=== PATIENT | male | born 1990 | race Caucasian/White ===

== ENCOUNTER 2020-02-19 18:18 | Outpatient (REF) | payer SELFPAY | END 2020-02-19 18:19 | disposition home or self-care (01) | LOC: HO.LAB 18:18 | PROVIDERS: Visit Provider Internal Medicine | DX: Z20.828 Contact with and (suspected) exposure to other viral communicable diseases (principal) | CPT/HCPCS: C9803; U0003 ==

== ENCOUNTER 2021-01-04 13:54 | Emergency (ER) | payer OTHER, SELFPAY ==
--- NOTE | 2021-01-04 13:59 | ECG_ITS ---
Test Reason : SYNCOPE Blood Pressure : / mmHG Vent. Rate : 077 BPM Atrial Rate : 077 BPM P-R Int : 156 ms QRS Dur : 086 ms QT Int : 368 ms P-R-T Axes : 048 028 015 degrees QTc Int : 416 ms Normal sinus rhythm Normal ECG No previous ECGs available Referred By: [facility] Electronically Signed By:SORAYA INGRAM MD
[2021-01-04 14:00] VITALS: BP 141/86; PULSE 70; O2SAT 96
[2021-01-04 14:03] VITALS: BP 143/86; PULSE 56; RESP 10; O2SAT 92; O2SAT 93; BMI 40.8
[2021-01-04 14:11] LABS: Glucose, Whole Blood 150 mg/dL (60-115)
[2021-01-04] MEDS: 0.9 % Sodium Chloride 1,000 ML 999 ML IV (14:21)
--- NOTE | 2021-01-04 14:27 | PC.NURSE ---
Addendum entered by Elaina Lacy RN 01/04/21 15:20: Patient on continuous portable EKG monitoring along with bedside telemetry following episode of asystole/pause. Addendum entered by Elaina Lacy RN 01/04/21 15:15: When patient's HR paused, patient was not arousable, unresponsive, diaphoretic. Unable to palpate carotid pulse, pacer pads placed. Code cart remained at bedside. Pressure bagged NS bolus. VS monitored q5min. Dr Morris to bedside. 2nd IV inserted. Labs drawn. Covid swabbed. Original Note: pt me x 1 with atropine 0.5mg ivp per dr. morris. pt rhythm went into asystole/pause. sternal rub then pt HR up to 38. pt now more awake, answering staff, pulse 76. Will continue to monitor.
[2021-01-04 14:38] VITALS: BP 130/80; PULSE 87; RESP 21; TEMP 36.4; O2SAT 100
--- NOTE | 2021-01-04 14:49 | ED_ITS ---
HPI - Syncope General Chief Complaint: Syncope Stated Complaint: syncope Time Seen by Provider: 01/04/21 14:38 Source: patient Mode of arrival: ambulatory Limitations: no limitations History of Present Illness HPI narrative: A 31-year-old male with no pmh presents to ED for multiple episodes of syncope. As per EMS patient had 3 syncopal episodes at home and 2 more in the ambulance ride. Patient now alert oriented x3. Patient states this has never happened before. Patient states smoking marijuana this morning from his usual dealer. Patient denies any other drug use. Related Data Allergies Allergy/AdvReac Type Severity Reaction Status Date / Time No Known Allergies Allergy Unverified 12/06/19 16:46 Review of Systems Review of Systems: Yes all other systems are reviewed and are negative Constitutional: Constitutional: Reports as per HPI and Reports no additional constitutional complaints Eyes: Eyes: Reports as per HPI and Reports no additional eye complaints ENT: Reports system reviewed and no additional complaints, except as documented and Reports as per HPI Cardiovascular: Cardiovascular: Reports as per HPI and Reports no additional cardiovascular complaints Comments: Multiple episodes of syncope Respiratory: Respiratory: Reports as per HPI and Reports no additional respiratory complaints Gastrointestinal: Gastrointestinal: Reports as per HPI and Reports no additional gastrointestinal complaints Genitourinary: Genitourinary: Reports no additional male genitourinary complaints and Reports as per HPI Musculoskeletal: Musculoskeletal: Reports no additional musculoskeletal complaints and Reports as per HPI Integumentary/Breasts: Skin/Breast: Reports system reviewed and no additional complaints, except as docu and Reports as per HPI Neurologic: Reports system reviewed and no additional complaints, except as documented and Reports as per HPI Psychiatric: Psychiatric: Reports no additional psychiatric complaints and Reports as per HPI [facility] Social History Social History Alcohol intake: current Alcohol intake frequency: a few times a month Patient Tobacco Use Status: Never used Tobacco Smoked in Last 30 Days: No Use of substances other than those prescribed or required for medical reasons: Yes Substance Use Type: Marijuana Substance Use Frequency: Daily Advance Directives: No Advance Directives Information Provided: No Physical Exam Vital Signs: Vital Signs: Last Vital Signs Temp 97.5 F 01/04/21 14:38 Pulse 87 01/04/21 14:38 Resp 21 H 01/04/21 14:38 BP 130/80 01/04/21 14:38 Pulse Ox 100 01/04/21 14:38 Body Mass Index 40.8 Const: General: cooperative, healthy appearing, comfortable, no acute distress, well developed, alert, awake and Physically active Orientation/consciousness: patient oriented x3 HENMT: Head: Yes normal to inspection, Yes No palpable skull fracture present, Yes normocephalic, Yes atraumatic and No abrasion Eyes: General: appearance normal, both eyes and all related structures Neck: Neck: Yes normal visual inspection, Yes full ROM, Yes no lymphadenopathy, Yes no meningeal signs, Yes trachea midline, Yes supple and No tender Chest: Chest palpation & inspection: normal inspection of the chest and normal palpation of entire chest wall Resp: Effort & Inspection: normal respiratory effort and able to speak in complete sentences Auscultation: clear to auscultation bilaterally Cardio: Jugular venous distension: no JVD Heart sounds: S1 normal heart sound present and S2 normal heart sound present GI: Inspection: Yes normal to inspection and No abdominal wall ecchymosis Palpation (GI): Soft to palpation, not firm, nontender and no guarding : General: No CVA tenderness and Yes no CVA tenderness Back/Spine/Pelvis: Back: no CVA tenderness, No CVA tenderness and No back tenderness Skin: General skin exam: no rashes or lesions noted and elasticity normal Neuro: General: patient oriented x3, gait normal, no meningeal signs and CN's II-XI intact bilaterally Cranial nerves: Yes CN's II-XII intact bilaterally Extrem: General: Yes normal to inspection and Yes full ROM Psych: Appearance: grossly normal, well kempt and not disheveled Course Course Course Narrative: Patient alert oriented x3. EKG normal sinus. Will order labs including head CT and chest CTA. Reevaluation(s) Reevaluation #1: Patient had 3 syncopal episodes that resulted in asystole. Patient at that time did not have pulse, but after each episode of asystole patient will come to himself and be alert oriented x3. Asystole strip confirmed and printed out. Dr. Morris ordered atropine and patient placed on external pacer monitor. Spoke with Dr. Nunez of Cardiology who recommends patient be transferred to [facility] for CCU and external pacer. Spoke with [facility] events traffic controller . He was informed of patient's history, physical exam, and diagnostics. He is agreeable with plan the patient should be transferred to [facility] CCU for evaluation and external pacer. Not able to do head CT and chest CTA due to immediate transfer. Labs are pending. Time: 14:23 MDM - Syncope MDM Narrative Medical decision making narrative: Sinus arrest. Symptomatic bradycardia. Lab Data Labs: Lab Results 01/04/21 Range/Units 14:07 POC Glucose 150 H (60-115) mg/dL Critical Care Time Critical Care Time Critical Care Time: Yes Total Critical Care Time: 60 Attestation: Patient given atropine. Patient placed on external pacing monitors. Contacted events traffic controller. Patient to be transferred to [facility] Discharge Plan Discharge Clinical Impression: Syncope, Sinus arrest, Symptomatic sinus bradycardia Patient Disposition: [facility] Transfer Details: [facility]
[2021-01-04 15:00] LABS: Basophils Percent Auto 0.2 % (0-2); Eosinophils Absolute Auto 0.1 X10*3/uL (0.0-0.4); Eosinophils Percent Auto 1.1 % (0-4); Hematocrit 40.5 % (42-52); Hemoglobin 13.4 g/dl (14.0-18.0); Imm Gran Abs Auto 0.03 X10*3/uL (0.00-0.03); Imm Gran Pct Auto 0.3 % (0.0-0.4); Lymphocytes Absolute Auto 1.1 X10*3/uL (1.2-4.9); Lymphocytes Percent Auto 11.6 % (20-40); MANUAL DIFF FLAG NO; Mean Corpuscular HGB Conc 33.1 g/dl (31.0-36.0); Mean Corpuscular Hemoglobin 29.7 pg (27.0-33.0); Mean Corpuscular Volume 89.8 fL (80-98); Mean Platelet Volume 9.4 fL (9.4-12.4); Monocytes Absolute Auto 0.4 X10*3/uL (0.1-1.2); Monocytes Percent Auto 4.3 % (2-11); Neutrophils Absolute Auto 7.5 X10*3/uL (2.0-8.3); Neutrophils Percent Auto 82.5 % (45-73); Platelet Count 201 X10*3/uL (160-400); Red Blood Count 4.51 X10*6/uL (4.60-5.80); Red Cell Distribution Width 12.7 % (11.0-16.0); White Blood Count 9.1 X10*3/uL (4.8-10.8)
[2021-01-04 15:05] VITALS: BP 141/67; PULSE 97; RESP 18; O2SAT 100
--- NOTE | 2021-01-04 15:06 | PC.NURSE ---
pt accepted [address] [phone]
--- NOTE | 2021-01-04 15:06 | PC.NURSE ---
Pt awaiting tx to [facility]. LYLA. VSS at this time. Patient aware of plan of care. Family at the bedside, aware of plan as well.
[2021-01-04 15:08] LABS: Prothrombin Time 11.7 SEC (9.9-13.0)
[2021-01-04 15:11] LABS: Partial Thromboplastin Time 23.7 SEC (24.1-38.0)
[2021-01-04 15:16] LABS: COVID-19 Test Negative (Negative)
[2021-01-04 15:21] LABS: Alanine Aminotransferase 23 U/L (0-40); Albumin Level 3.7 g/dL (3.5-5.0); Alkaline Phosphatase 73 U/L (39-117); Anion Gap 12 (12-20); Aspartate Amino Transferase 16 U/L (5-37); Bilirubin Direct < 0.2 mg/dL (0.0-0.5); Bilirubin Total 0.2 mg/dL (0.0-1.0); Blood Urea Nitrogen 14 mg/dL (9-16); Calcium 8.6 mg/dL (8.4-10.2); Carbon Dioxide 24 mmol/L (22-29); Chloride 107 mmol/L (96-108); Creatinine Clr Calc Pharmacy 194.6; Estimated Glomerular Filt Rate > 60; Glucose Random 138 mg/dL (60-115); Magnesium 1.8 mg/dL (1.6-2.6); Potassium 4.2 mmol/L (3.3-5.1); Sodium 139 mmol/L (135-145); Total Protein 5.9 g/dL (6.5-8.0)
[2021-01-04 15:22] LABS: Ethanol < 10 mg/dL
[2021-01-04 15:24] LABS: Troponin-I High Sensitivity < 3.5 ng/L (<3.5-35.0)
--- NOTE | 2021-01-04 15:28 | PC.NURSE ---
Addendum entered by Elaina Lacy RN 01/04/21 15:29: Phone number to [facility] at [facility]: [phone] Original Note: Report called to [facility], spoke with Krissy EDMONDS.
== END 2021-01-04 19:37 | disposition short-term general hospital (02) ==
PROVIDERS: Physician Assistant; Emergency Provider Emergency Medicine
DX: R55 Syncope and collapse (principal); I45.5 Other specified heart block; R00.1 Bradycardia, unspecified; Z20.822 Contact with and (suspected) exposure to COVID-19
CPT/HCPCS: 36415; 80053; 80076; 82077; 82248; 82550; 82947; 83735; 84484; 85025; 85610; 85730; 87635; 93005; 96360; 99285; 99291; J0461